=== PATIENT | female | born 1980 | race Caucasian/White ===

== ENCOUNTER 2016-12-11 16:47 | Emergency (ER) | payer MEDICAID ==
[~2016-12-11] VITALS: Ht 172.7 cm; Wt 82.0 kg
[~2016-12-11 16:47] MED LIST: WELL150T PO
[2016-12-11 16:50] VITALS: BP 129/93; PULSE 87; RESP 16; TEMP 98.1; O2SAT 98
--- NOTE | 2016-12-11 17:13 | PD ---
HPI Chief Complaint: Abdominal Pain Time Seen by Provider: 17:03 Travel History International Travel<30 days: No Contact w/Intl Traveler<30days: No Traveled to known affect area: No History of Present Illness HPI The patient was seen and examined in the presence of the nurse. This patient bent over and twist her torso to reach her leg to shave and strain or muscle right upper quadrant. She felt like it bulged out at the time it happened. Occasionally gets twinges of pain there. No nausea or vomiting or diarrhea or fever. No direct trauma to the region. Also complains of some pelvic cramping for the last 2 weeks. She has no vaginal discharge or bleeding abnormalities. Symptoms severity is moderate. No alleviating factors. PFSH Past Medical History ADHD: Yes Anxiety: Yes Depression: Yes Diminished Hearing: No Herniated Disk: Yes Immunizations Current: Yes ?: Not LMP: 2 WEEKS : 2 Para: 1 : 1 Social History Alcohol Use: No Tobacco Use: No Substance Use: No Allergies-Medications (Allergen,Severity, Reaction): Coded Allergies: No Known Allergies (Verified , 09/01/16) Reported Meds & Prescriptions Reported Meds & Active Scripts Active Reported Buspirone (Buspirone HCl) 7.5 Mg Tab 7.5 Mg PO BID Wellbutrin SR 12 HR (Bupropion HCl) 150 Mg Tab 150 Mg PO Q12HR Review of Systems General / Constitutional: No: Fever Eyes: No: Visual changes HENT: No: Headaches Cardiovascular: No: Chest Pain or Discomfort Respiratory: No: Shortness of Breath Gastrointestinal: Positive: Abdominal Pain Genitourinary: Positive: Pelvic Pain, No: Dysuria Musculoskeletal: No: Pain Skin: No Rash Neurologic: No: Weakness Psychiatric: No: Depression Endocrine: No: Polydipsia Hematologic/Lymphatic: No: Easy Bruising Physical Exam Narrative GENERAL: Well-nourished, well-developed patient in no apparent distress. SKIN: Warm and dry. HEAD: Atraumatic. Normocephalic. EYES: Pupils equal and round. No scleral icterus. No injection or drainage. ENT: No nasal bleeding or discharge. Mucous membranes pink and moist. NECK: Trachea midline. No JVD. CARDIOVASCULAR: Regular rate and rhythm. No murmur appreciated. RESPIRATORY: No accessory muscle use. Clear to auscultation. Breath sounds equal bilaterally. GASTROINTESTINAL: Abdomen soft, non-tender, nondistended. Hepatic and splenic margins not palpable. No right upper quadrant abnormalities are noted MUSCULOSKELETAL: No obvious deformities. No clubbing. No cyanosis. No edema. NEUROLOGICAL: Awake and alert. No obvious cranial nerve deficits. Motor grossly within normal limits. Normal speech. PSYCHIATRIC: Appropriate mood and affect; insight and judgment normal. Data Data Last Documented VS Vital Signs Date Time Temp Pulse Resp B/P Pulse Ox O2 Delivery O2 Flow Rate FiO2 12/11/16 16:50 98.1 87 16 129/93 98 Orders Urinalysis - C+S If Indicated (12/11/16 16:55) Ed Urine Pregnancytest Poc (12/11/16 17:10) Labs Laboratory Tests Test 12/11/16 17:05 Urine Collection Type CLEAN CATCH Urine Color YELLOW Urine Turbidity SLIGHTY CLOUDY Urine pH 7.5 Urine Specific [place] 1.020 Urine Protein NEG mg/dL Urine Glucose (UA) NEG mg/dL Urine Ketones NEG mg/dL Urine Occult Blood NEG Urine Nitrite NEG Urine Bilirubin NEG Urine Leukocyte Esterase NEG Urine Squamous Epithelial 0-5 /hpf Cells Urine Amorphous Sediment MOD Microscopic Urinalysis Comment CULT NOT INDICATED MDM Medical Decision Making Medical Screen Exam Complete: Yes Emergency Medical Condition: Yes Medical Record Reviewed: Yes Differential Diagnosis Intercostal muscle strain, abdominal muscle injury, ectopic Narrative Course I have reviewed the patient's electronic medical record. She is a frequent visitor to the ER for minor complaints Urinalysis is normal Urine is negative Abdomen is soft and benign and nontender. I don't feel she requires emergent imaging, no clinical suspicion of intra- abdominal emergent process. Wrote her some Tylenol with codeine to use as needed for pain She has no symptoms or clinical suspicion of PID Recommend primary care follow-up Diagnosis Primary Impression: Abdominal muscle strain Qualified Code: S39.011A - Abdominal muscle strain, initial encounter Additional Impression: Pelvic pain Additional Instructions: The patient was advised to follow up with their physician and return if they worsen. The patient was warned about potential sedation for the medications they will receive on prescription. Med/Other Pt SpecificInfo: Prescription(s) given Scripts Acetaminophen-Codeine (Tylenol-Codeine #3)300-30 mg Tab1 Tab PO Q6HR NEB PRN ( PAIN) #20 TAB Ref 0 Prov:Kwadwo Bolden MD 12/11/16 Disposition: 01 DISCHARGE HOME Condition: Stable Kwadwo Bolden MD Dec 11, 2016 17:13
[2016-12-11] MEDS ORDERED: BUPR150CR PO (17:14)
[2016-12-11] MEDS ORDERED: BUSP1TAB PO (17:14)
[2016-12-11 17:17] LABS: BLOOD, URINE NEG (NEG); GLUCOSE,URINE NEG (NEG); KETONE, URINE NEG (NEG); NITRITE,URINE NEG (NEG); PH, URINE 7.5 (5.0-8.5)
[2016-12-11 17:20] LABS: METHOD OF COLLECTION CLEAN CATCH; URINE COLOR YELLOW (YELLW/STRAW)
[2016-12-11 17:21] LABS: COMMENT (UR) CULT NOT INDICATED; CULTURE IF INDICATED CULT NOT INDICATED; SQUAMOUS EPITHELIAL CELL URINE 0-5 /hpf (0-5)
[2016-12-11] MEDS ORDERED: TYLETAB34 PO (17:28)
== END 2016-12-11 17:46 | disposition home or self-care (01) ==
LOC: PHED 16:47
DX: S39.011A Strain of muscle, fascia and tendon of abdomen, initial encounter (principal); R10.2 Pelvic and perineal pain; X50.1XXA Overexertion from prolonged static or awkward postures, initial encounter; Y93.E1 Activity, personal bathing and showering
CPT/HCPCS: 81001; 84703; 99283

== ENCOUNTER 2017-03-10 10:08 | Emergency (ER) | payer MEDICAID ==
[~2017-03-10] VITALS: Ht 172.7 cm; Wt 71.0 kg
[~2017-03-10 10:08] MED LIST changes: +BUPR150CR PO; +BUSP1TAB PO; +TYLETAB34 PO; -WELL150T PO
[2017-03-10 10:17] VITALS: BP 120/83; PULSE 71; RESP 16; TEMP 98.4; O2SAT 96
[2017-03-10] MEDS ORDERED: ONDANSETRON HCL 4 MG/2 ML VIAL IV PUSH ONE (10:45)
[2017-03-10] MEDS ORDERED: SODIUM CHLOR 0.9% 1000 ML INJ 1,000 ML IV ONE ×2 (10:45)
--- NOTE | 2017-03-10 10:51 | PD ---
HPI Chief Complaint: GI Complaint Time Seen by Provider: 10:34 Travel History International Travel<30 days: No Contact w/Intl Traveler<30days: No Traveled to known affect area: No History of Present Illness HPI This 36-year-old female says she been vomiting 3-4 times per day. She is having epigastric pain. She has a history of GERD in the past. She says she's had less energy than usual. She does say she's been under a lot of stress for several months. She's had a 24 pound weight loss. She does not think she is but not sure. Her last period was a couple of weeks ago. She checked a home test yesterday which was negative. she does not drink alcohol or do drugs. She says that at times she feels flushed and feels like she has fever but she has not measured it PFSH Past Medical History ADHD: Yes Anxiety: Yes Depression: Yes Diminished Hearing: No Herniated Disk: Yes Immunizations Current: Yes Tetanus Vaccination: > 5 Years Influenza Vaccination: Yes ?: Not LMP: 2 weeks ago : 2 Para: 1 : 1 Past Surgical History Surgical History: No Previous Surgery Social History Alcohol Use: No Tobacco Use: Yes Substance Use: No Allergies-Medications (Allergen,Severity, Reaction): Coded Allergies: No Known Allergies (Verified , 03/10/17) Reported Meds & Prescriptions Reported Meds & Active Scripts Active Tylenol-Codeine #3 (Acetaminophen-Codeine) 300-30 mg Tab 1 Tab PO Q6HR NEB PRN Reported Buspirone (Buspirone HCl) 7.5 Mg Tab 7.5 Mg PO BID Wellbutrin SR 12 HR (Bupropion HCl) 150 Mg Tab 150 Mg PO Q12HR Review of Systems General / Constitutional: Positive: Fever Eyes: No: Diploplia, Blurred Vision HENT: Positive: Lightheadedness, No: Headaches Cardiovascular: No: Chest Pain or Discomfort, Palpitations Respiratory: No: Cough, Shortness of Breath Gastrointestinal: Positive: Vomiting, Abdominal Pain Genitourinary: No: Urgency, Frequency Musculoskeletal: No: Myalgias Neurologic: No: Weakness Psychiatric: No: Anxiety Endocrine: No: Heat Intolerance Physical Exam Narrative GENERAL: Well-developed female SKIN: Focused skin assessment warm/dry. HEAD: Atraumatic. Normocephalic. EYES: Pupils equal and round. No scleral icterus. No injection or drainage. ENT: No nasal bleeding or discharge. Mucous membranes pink and moist. NECK: Trachea midline. No JVD. CARDIOVASCULAR: Regular rate and rhythm. No murmur appreciated. RESPIRATORY: No accessory muscle use. Clear to auscultation. Breath sounds equal bilaterally. GASTROINTESTINAL: Abdomen soft, mild epigastric tenderness, nondistended. Hepatic and splenic margins not palpable. MUSCULOSKELETAL: No obvious deformities. No clubbing. No cyanosis. No edema. NEUROLOGICAL: Awake and alert. No obvious cranial nerve deficits. Motor grossly within normal limits. Normal speech. PSYCHIATRIC: Appropriate mood and affect; insight and judgment normal. Data Data Last Documented VS Vital Signs Date Time Temp Pulse Resp B/P Pulse Ox O2 Delivery O2 Flow Rate FiO2 03/10/17 11:58 65 16 128/89 100 Room Air 03/10/17 10:17 98.4 Orders Complete Blood Count With Diff (03/10/17 10:43) Comprehensive Metabolic Panel (03/10/17 10:43) Lipase (03/10/17 10:43) Urinalysis - C+S If Indicated (03/10/17 10:43) Ct Abd/Pel W Iv Contrast(Rout) (03/10/17 10:43) Ed Urine Pregnancytest Poc (03/10/17 10:43) Sodium Chlor 0.9% 1000 Ml Inj (Ns 1000 M (03/10/17 10:45) Sodium Chlor 0.9% 1000 Ml Inj (Ns 1000 M (03/10/17 10:45) Ondansetron Inj (Zofran Inj) (03/10/17 10:45) Pantoprazole Inj (Protonix Inj) (03/10/17 11:00) Iohexol 350 Inj (Omnipaque 350 Inj) (03/10/17 12:43) Labs Laboratory Tests Test 03/10/17 03/10/17 11:12 11:20 White Blood Count 6.1 TH/MM3 Red Blood Count 4.15 MIL/MM3 Hemoglobin 13.4 GM/DL Hematocrit 38.7 % Mean Corpuscular Volume 93.3 FL Mean Corpuscular Hemoglobin 32.2 PG Mean Corpuscular Hemoglobin 34.5 % Concent Red Cell Distribution Width 11.7 % Platelet Count 199 TH/MM3 Mean Platelet Volume 8.1 FL Neutrophils (%) (Auto) 60.8 % Lymphocytes (%) (Auto) 27.6 % Monocytes (%) (Auto) 7.2 % Eosinophils (%) (Auto) 1.0 % Basophils (%) (Auto) 3.4 % Neutrophils # (Auto) 3.7 TH/MM3 Lymphocytes # (Auto) 1.7 TH/MM3 Monocytes # (Auto) 0.4 TH/MM3 Eosinophils # (Auto) 0.1 TH/MM3 Basophils # (Auto) 0.2 TH/MM3 CBC Comment DIFF FINAL Differential Comment Sodium Level 140 MEQ/L Potassium Level 3.9 MEQ/L Chloride Level 104 MEQ/L Carbon Dioxide Level 25.7 MEQ/L Anion Gap 10 MEQ/L Blood Urea Nitrogen 6 MG/DL Creatinine 0.67 MG/DL Estimat Glomerular Filtration 100 ML/MIN Rate Random Glucose 87 MG/DL Calcium Level 8.9 MG/DL Total Bilirubin 0.9 MG/DL Aspartate Amino Transf 39 U/L (AST/SGOT) Alanine Aminotransferase 62 U/L (ALT/SGPT) Alkaline Phosphatase 55 U/L Total Protein 7.8 GM/DL Albumin 3.7 GM/DL Lipase 135 U/L Urine Collection Type CLEAN CATCH Urine Color YELLOW Urine Turbidity CLEAR Urine pH 7.0 Urine Specific [place] 1.018 Urine Protein TRACE mg/dL Urine Glucose (UA) NEG mg/dL Urine Ketones 80 OR GREATER mg/dL Urine Occult Blood NEG Urine Nitrite NEG Urine Bilirubin NEG Urine Leukocyte Esterase NEG Urine WBC 0-2 /hpf Urine Squamous Epithelial > 8 /hpf Cells Microscopic Urinalysis Comment CULT NOT INDICATED Urine Collection Time 11:20 MDM Medical Decision Making Medical Screen Exam Complete: Yes Emergency Medical Condition: Yes Medical Record Reviewed: Yes Differential Diagnosis Differential includes obstruction, ulcer disease, GERD Narrative Course CT is negative for obstruction. Lab work shows a normal white count and hemoglobin. I suspect her symptoms are secondary to gastritis possible ulcer. I will prescribe Prilosec and Zofran with recommendations for GI follow-up Diagnosis Primary Impression: Gastritis Qualified Code: K29.70 - Gastritis without bleeding, unspecified chronicity, unspecified gastritis type Scripts Ondansetron Odt (Zofran Odt)4 Mg Tab4 Mg SL Q6HR PRN (Nausea/Vomiting) #30 TAB Ref 0 Prov:Lane Quevedo MD 03/10/17 Omeprazole (Prilosec)20 Mg Cap20 Mg PO DAILY #30 CAP Ref 0 Prov:Lane Quevedo MD 03/10/17 Disposition: 01 DISCHARGE HOME Condition: Stable Lane Quevedo MD Mar 10, 2017 10:51
[2017-03-10] MEDS ORDERED: PANTOPRAZOLE SODIUM 40 MG VIAL IV PUSH ONE (11:00)
[2017-03-10 11:16] LABS: AUTOMATED NEUTROPHIL # 3.7 TH/MM3 (1.8-7.7); BASOPHIL # 0.2 TH/MM3 (0-0.2); BASOPHIL % 3.4 % (0.0-2.0); EOSINOPHIL # 0.1 TH/MM3 (0-0.4); HEMATOCRIT 38.7 % (35.0-46.0); HEMO FLAGS DIFF FINAL; LYMPH % 27.6 % (9.0-44.0); LYMPHOCYTE # 1.7 TH/MM3 (1.0-4.8); MEAN CELL VOLUME 93.3 FL (80.0-100.0); MEAN CORPUSCULAR HEMOGLOBIN 32.2 PG (27.0-34.0); MEAN CORPUSCULAR HGB CONC 34.5 % (32.0-36.0); MONO % 7.2 % (0.0-8.0); NEUT % 60.8 % (16.0-70.0); PLATELET COUNT 199 TH/MM3 (150-450); RED BLOOD COUNT 4.15 MIL/MM3 (4.00-5.30); RED CELL DISTRIBUTION WIDTH 11.7 % (11.6-17.2); WHITE BLOOD COUNT 6.1 TH/MM3 (4.0-11.0)
[2017-03-10 11:24] LABS: CHLORIDE 104 MEQ/L (98-107); POTASSIUM 3.9 MEQ/L (3.5-5.1); SODIUM (NA) 140 MEQ/L (136-145)
[2017-03-10 11:28] LABS: ANION GAP 10 MEQ/L (5-15); BICARBONATE 25.7 MEQ/L (21.0-32.0); BLOOD UREA NITROGEN 6 MG/DL (7-18)
[2017-03-10 11:31] LABS: ALT (GPT) 62 U/L (10-53); AST (GOT) 39 U/L (15-37); GLOMERULAR FILTRATION RATE 100 ML/MIN (>89)
[2017-03-10 11:32] LABS: TOTAL BILIRUBIN ADULT 0.9 MG/DL (0.2-1.0)
[2017-03-10 11:33] LABS: ALKALINE PHOSPHATASE 55 U/L (45-117)
[2017-03-10 11:37] LABS: BLOOD, URINE NEG (NEG); GLUCOSE,URINE NEG (NEG); NITRITE,URINE NEG (NEG)
[2017-03-10 11:38] LABS: KETONE, URINE 80 OR GREATER mg/dL (NEG)
[2017-03-10 11:41] LABS: METHOD OF COLLECTION CLEAN CATCH; URINE COLOR YELLOW (YELLW/STRAW)
[2017-03-10 11:42] LABS: COMMENT (UR) CULT NOT INDICATED; CULTURE IF INDICATED CULT NOT INDICATED; SQUAMOUS EPITHELIAL CELL URINE > 8 /hpf (0-5); WBC, URINE 0-2 /hpf (0-5)
[2017-03-10 11:58] VITALS: BP 128/89; PULSE 65; RESP 16; O2SAT 100
[2017-03-10] MEDS ORDERED: IOHEXOL 350 MG/ML 10 ML VIAL (for RAD DIAG) IV ONE (12:43)
--- NOTE | 2017-03-10 13:07 | RADHPO ---
EXAM DATE/TIME: 03/10/2017 12:32 [facility] COMPARISON: No previous studies available for comparison. INDICATIONS : Epigastric pain x 2 weeks. Nausea and vomiting. IV CONTRAST: 80 cc Omnipaque 350 (iohexol) IV ORAL CONTRAST: No oral contrast ingested. RADIATION DOSE: 8.73 CTDIvol (mGy) MEDICAL HISTORY : Gastroesophageal reflux disease. SURGICAL HISTORY : None. ENCOUNTER: Initial ACUITY: 2 weeks PAIN SCALE: 8/10 LOCATION: Epigastric. TECHNIQUE: Volumetric scanning of the abdomen and pelvis was performed. Using automated exposure control and ad justment of the mA and/or kV according to patient size, radiation dose was kept as low as reasonably achievable to obtain optimal diagnostic quality images. FINDINGS: LOWER LUNGS: The visualized lower lungs are clear. LIVER: Homogeneous density without lesion. There is no dilation of the biliary tree. No calcified gallston es. SPLEEN: Normal size without lesion. PANCREAS: Within normal limits. KIDNEYS: Normal in size and shape. There is no mass, stone or hydronephrosis. ADRENAL GLANDS: Within normal limits. VASCULAR: There is no aortic aneurysm. BOWEL/MESENTERY: The stomach, small bowel, and colon demonstrate no acute abnormality. There is no free intraperitone al air or fluid. Appendix is normal. ABDOMINAL WALL: Within normal limits. RETROPERITONEUM: There is no lymphadenopathy. BLADDER: No wall thickening or mass. REPRODUCTIVE: Within normal limits. There is a 2 cm cyst/follicle in the left ovary. INGUINAL: There is no lymphadenopathy or hernia. MUSCULOSKELETAL: Within normal limits for patient age. CONCLUSION: No acute finding is identified within the abdomen or pelvis. Quinn Cordova MD on March 10, 2017 at 13:02 Board Certified Radiologist. This report was verified electronically.
[2017-03-10 13:35] VITALS: BP 119/77; PULSE 66; RESP 16; O2SAT 100
[2017-03-10] MEDS ORDERED: ZOFR4TAB3 SL (13:37)
[2017-03-10] MEDS ORDERED: PRIL20CA9 PO (13:37)
== END 2017-03-10 13:59 | disposition home or self-care (01) ==
LOC: PHED 10:08
DX: K29.70 Gastritis, unspecified, without bleeding (principal); R10.13 Epigastric pain; Z72.0 Tobacco use
CPT/HCPCS: 74177; 80053; 81001; 83690; 84703; 85025; 96361; 96374; 96375; 99284; C9113; J2405; J7030; Q9967

== ENCOUNTER 2017-03-31 08:43 | Observation (INO) | payer MEDICAID ==
[~2017-03-31] VITALS: Ht 172.7 cm; Wt 71.0 kg
[~2017-03-31 08:43] MED LIST changes: +PRIL20CA9 PO; +ZOFR4TAB3 SL
[2017-03-31 08:46] VITALS: BP 120/90; PULSE 80; RESP 16; TEMP 98.3
--- NOTE | 2017-03-31 08:50 | PD ---
HPI Chief Complaint: Flank/Kidney Pain Time Seen by Provider: 08:50 Travel History International Travel<30 days: No Contact w/Intl Traveler<30days: No Traveled to known affect area: No History of Present Illness HPI 36-year-old female came to the emergency room with history of sudden onset left flank pain since 2 AM that woke her up from sleep. Patient says that the pain is sharp and excruciating and radiates down to her left lower quadrant. She has never experienced this kind of pain in the past. She gave a urine sample prior to me coming in to see her and the urine appeared blood tinged. History of fever or chills. She has been nauseous and vomited few times. Patient says that she was diagnosed with acute gastritis 2 weeks ago when she was vomiting. She was sent home on Zofran and an antacid. Patient took the Zofran that she had from her prescription for nausea that has helped some. She looks uncomfortable. Vital signs are otherwise stable. [facility] Past Medical History Narrative Medical List of her past medical, surgical, social and family history was reviewed from nursing note. ADHD: Yes Anxiety: Yes Depression: Yes Diminished Hearing: No Herniated Disk: Yes Immunizations Current: Yes ?: Not LMP: 2 days ago : 2 Para: 1 : 1 Social History Alcohol Use: No Tobacco Use: Yes Substance Use: No Allergies-Medications (Allergen,Severity, Reaction): Coded Allergies: No Known Allergies (Verified , 03/31/17) Comments No known drug allergies. Reported Meds & Prescriptions Reported Meds & Active Scripts Active Zofran Odt (Ondansetron Odt) 4 Mg Tab 4 Mg SL Q6HR PRN Reported Buspirone (Buspirone HCl) 7.5 Mg Tab 10 Mg PO BID Wellbutrin SR 12 HR (Bupropion HCl) 150 Mg Tab 150 Mg PO DAILY Narrative Medication List of her home medications reviewed from the nursing note. Review of Systems Except as stated in HPI: all other systems reviewed are Neg Physical Exam Narrative GENERAL: Awake, alert, moderate to significant distress SKIN: Focused skin assessment warm/dry. HEAD: Atraumatic. Normocephalic. EYES: Pupils equal and round. No scleral icterus. No injection or drainage. ENT: No nasal bleeding or discharge. Mucous membranes pink and moist. NECK: Trachea midline. No JVD. CARDIOVASCULAR: Regular rate and rhythm. No murmur appreciated. RESPIRATORY: No accessory muscle use. Clear to auscultation. Breath sounds equal bilaterally. GASTROINTESTINAL: Abdomen soft, non-tender, nondistended. Hepatic and splenic margins not palpable. MUSCULOSKELETAL: No obvious deformities. No clubbing. No cyanosis. No edema. NEUROLOGICAL: Awake and alert. No obvious cranial nerve deficits. Motor grossly within normal limits. Normal speech. PSYCHIATRIC: Appropriate mood and affect; insight and judgment normal. Data Data Last Documented VS Vital Signs Date Time Temp Pulse Resp B/P Pulse Ox O2 Delivery O2 Flow Rate FiO2 03/31/17 11:03 72 18 119/79 98 Room Air 03/31/17 08:46 98.3 Orders Complete Blood Count With Diff (03/31/17 08:55) Basic Metabolic Panel (Bmp) (03/31/17 08:55) Urinalysis - C+S If Indicated (03/31/17 08:55) Ed Urine Pregnancytest Poc (03/31/17 08:55) Ct Abd/Pel W/O Iv Contrast (03/31/17 08:55) Ecg Monitoring (03/31/17 08:55) Iv Access Insert/Monitor (03/31/17 08:55) Morphine Inj (Morphine Inj) (03/31/17 09:00) Ondansetron Inj (Zofran Inj) (03/31/17 09:00) Sodium Chloride 0.9% Flush (Ns Flush) (03/31/17 09:00) Sodium Chlor 0.9% 1000 Ml Inj (Ns 1000 M (03/31/17 08:55) Morphine Inj (Morphine Inj) (03/31/17 10:15) Ciprofloxacin 400 Mg Premix (Cipro 400 M (03/31/17 10:30) Metronidazole 500 Mg Inj (Flagyl 500 Mg (03/31/17 10:30) Blood Culture (03/31/17 10:16) Bupropion Sr (Wellbutrin Sr) (04/01/17 09:00) Admit Order (Ed Use Only) (03/31/17 11:32) Ciprofloxacin 400 Mg Premix (Cipro 400 M (03/31/17 23:00) Metronidazole 500 Mg Inj (Flagyl 500 Mg (03/31/17 18:00) Buspirone (Buspar) (03/31/17 21:00) Labs Laboratory Tests Test 03/31/17 03/31/17 09:10 09:20 Urine Collection Type CLEAN CATCH Urine Color YELLOW Urine Turbidity CLEAR Urine pH 6.0 Urine Specific [place] 1.022 Urine Protein NEG mg/dL Urine Glucose (UA) NEG mg/dL Urine Ketones TRACE mg/dL Urine Occult Blood TRACE Urine Nitrite NEG Urine Bilirubin NEG Urine Leukocyte Esterase TRACE Urine RBC 0-3 /hpf Urine WBC 0-2 /hpf Urine Squamous Epithelial 0-5 /hpf Cells Urine Bacteria OCC /hpf Urine Mucus OCC /lpf Microscopic Urinalysis Comment CULT NOT INDICATED Urine Collection Time 09:10 White Blood Count 8.1 TH/MM3 Red Blood Count 4.33 MIL/MM3 Hemoglobin 13.6 GM/DL Hematocrit 40.4 % Mean Corpuscular Volume 93.4 FL Mean Corpuscular Hemoglobin 31.5 PG Mean Corpuscular Hemoglobin 33.7 % Concent Red Cell Distribution Width 11.8 % Platelet Count 252 TH/MM3 Mean Platelet Volume 8.0 FL Neutrophils (%) (Auto) 73.8 % Lymphocytes (%) (Auto) 17.1 % Monocytes (%) (Auto) 7.4 % Eosinophils (%) (Auto) 1.3 % Basophils (%) (Auto) 0.4 % Neutrophils # (Auto) 6.0 TH/MM3 Lymphocytes # (Auto) 1.4 TH/MM3 Monocytes # (Auto) 0.6 TH/MM3 Eosinophils # (Auto) 0.1 TH/MM3 Basophils # (Auto) 0.0 TH/MM3 CBC Comment DIFF FINAL Differential Comment Sodium Level 139 MEQ/L Potassium Level 4.0 MEQ/L Chloride Level 103 MEQ/L Carbon Dioxide Level 30.2 MEQ/L Anion Gap 6 MEQ/L Blood Urea Nitrogen 6 MG/DL Creatinine 0.71 MG/DL Estimat Glomerular Filtration 94 ML/MIN Rate Random Glucose 98 MG/DL Calcium Level 9.4 MG/DL [facility] Medical Decision Making Medical Screen Exam Complete: Yes Emergency Medical Condition: Yes Medical Record Reviewed: Yes Differential Diagnosis Ureteral colic, pyelonephritis, muscular skeletal pain Narrative Course 9:21 AM pain medication and IV fluid has been ordered. Awaiting for the blood test and CAT scan results. The nurse was unable to get a peripheral IV upon multiple trial. I put an EJ line. Please refer to my procedure note. 11:09 AM patient continued to complain of pain after the first dose of morphine. A second dose was given and at that point CAT scan report was back as well. It was read as colitis and possible diverticulitis. I started her on IV Flagyl and ciprofloxacin. I just reassessed her and she said the pain is 8 out of 10. Given her intractable pain and underlying pathology is like to admit her at this point. Awaiting for the hospitalist to call back. I discussed this with the patient and she is agreeable with the plan. Procedures Procedure Narrative EJ line: Patient was laid supine and the bed tilted a Trendelenburg position. The right EJ site was prepped with ChloraPrep times one. Patient was asked to do a Valsalva maneuver to fill the vein out and make a prominent. A 20-gauge injury catheter was inserted. Patient tolerated procedure well. EKG Prior to Arrival: No Diagnosis Primary Impression: Acute diverticulitis Additional Impression: Intractable abdominal pain Admitting Information Admitting Physician Requests: it Mehreen De León MD March 31, 2017 08:50
[2017-03-31] MEDS ORDERED: SODIUM CHLOR 0.9% 1000 ML INJ 1,000 ML IV ONE (08:55)
[2017-03-31] MEDS ORDERED: MORPHINE SULFATE 4 MG/ML INJ IV ONE (09:00)
[2017-03-31] MEDS ORDERED: ONDANSETRON HCL 4 MG/2 ML VIAL IVP ONE (09:00)
[2017-03-31 09:20] LABS: BLOOD, URINE TRACE (NEG); GLUCOSE,URINE NEG (NEG); KETONE, URINE TRACE mg/dL (NEG); NITRITE,URINE NEG (NEG)
[2017-03-31 09:27] LABS: METHOD OF COLLECTION CLEAN CATCH; MUCUS URINE OCC /lpf (OCC); URINE COLOR YELLOW (YELLW/STRAW)
[2017-03-31 09:28] LABS: BACTERIA, URINE OCC /hpf; COMMENT (UR) CULT NOT INDICATED; CULTURE IF INDICATED CULT NOT INDICATED; RBC, URINE 0-3 /hpf (0-3); SQUAMOUS EPITHELIAL CELL URINE 0-5 /hpf (0-5); WBC, URINE 0-2 /hpf (0-5)
[2017-03-31] MEDS: SODIUM CHLORIDE 0.9% FLUSH 10 ML FLUSH IVF PRN ×2 (09:31→10:27)
[2017-03-31 09:32] LABS: BASOPHIL % 0.4 % (0.0-2.0); EOSINOPHIL # 0.1 TH/MM3 (0-0.4); EOSINOPHIL % 1.3 % (0.0-4.0); HEMATOCRIT 40.4 % (35.0-46.0); HEMO FLAGS DIFF FINAL; LYMPH % 17.1 % (9.0-44.0); LYMPHOCYTE # 1.4 TH/MM3 (1.0-4.8); MEAN CELL VOLUME 93.4 FL (80.0-100.0); MEAN CORPUSCULAR HEMOGLOBIN 31.5 PG (27.0-34.0); MEAN CORPUSCULAR HGB CONC 33.7 % (32.0-36.0); MONO % 7.4 % (0.0-8.0); NEUT % 73.8 % (16.0-70.0); PLATELET COUNT 252 TH/MM3 (150-450); RED BLOOD COUNT 4.33 MIL/MM3 (4.00-5.30); RED CELL DISTRIBUTION WIDTH 11.8 % (11.6-17.2); WHITE BLOOD COUNT 8.1 TH/MM3 (4.0-11.0)
[2017-03-31 09:48] LABS: BICARBONATE 30.2 MEQ/L (21.0-32.0)
--- NOTE | 2017-03-31 10:02 | RADHPO ---
EXAM DATE/TIME: 03/31/2017 09:32 [facility] COMPARISON: No previous studies available for comparison. INDICATIONS : Left flank pain. ORAL CONTRAST: No oral contrast ingested. RADIATION DOSE: 10.37 CTDIvol (mGy) MEDICAL HISTORY : None SURGICAL HISTORY : None. ENCOUNTER: Initial ACUITY: 1 day PAIN SCALE: 9/10 LOCATION: Left flank TECHNIQUE: Volumetric scanning of the abdomen and pelvis was performed. Using automated exposure control and ad justment of the mA and/or kV according to patient size, radiation dose was kept as low as reasonably achievable to obtain optimal diagnostic quality images. FINDINGS: LOWER LUNGS: The visualized lower lungs are clear. LIVER: Homogeneous density without lesion. There is no dilation of the biliary tree. No calcified gallston es. SPLEEN: Normal size without lesion. PANCREAS: Within normal limits. KIDNEYS: Normal in size and shape. Isolated, nonobstructing 1.5-2 mm calculus in the midpole collecting system of the right kidney. Kidneys are otherwise radiographically normal. ADRENAL GLANDS: Within normal limits. VASCULAR: There is no aortic aneurysm. BOWEL/MESENTERY: Focal area of bowel wall thickening in the proximal to mid descending. There is also regional pericol onic stranding all characteristic of a focal colitis, likely related to regional diverticula. ABDOMINAL WALL: Within normal limits. RETROPERITONEUM: There is no lymphadenopathy. BLADDER: No wall thickening or mass. REPRODUCTIVE: Within normal limits. INGUINAL: There is no lymphadenopathy or hernia. MUSCULOSKELETAL: Within normal limits for patient age. CONCLUSION: 1. Patient's symptoms appear to be related to a focal colitis involving the proximal and mid descendi ng portions of the colon with colonic thickening and pericolonic stranding. No abscess. Etiology is l ikely uncomplicated diverticulitis. 2. Nonobstructing 1.5-2 mm isolated calculus in the midpole collecting system of the right kidney. No left renal or ureteral stones. Javier Mantilla MD on March 31, 2017 at 9:55 Board Certified Radiologist. This report was verified electronically.
[2017-03-31] MEDS ORDERED: MORPHINE SULFATE 4 MG/ML INJ IV PUSH ONE (10:15)
[2017-03-31] MEDS ORDERED: metroNIDAZOLE 500 MG INJ 100 ML IV ONE (10:30)
[2017-03-31] MEDS ORDERED: CIPROFLOXACIN 400 MG PREMIX 200 ML IV ONE (10:30)
[2017-03-31 10:35] VITALS: BP 112/69; PULSE 67; RESP 16; O2SAT 97
[2017-03-31 11:03] VITALS: BP 119/79; PULSE 72; RESP 18; O2SAT 98
[2017-03-31] MEDS ORDERED: HYDROmorphone HCL PF 1 MG/ML VIAL IV PRN (11:45)
[2017-03-31] MEDS ORDERED: ACETAMINOPHEN/HYDROcodone 325 MG/5 MG TAB PO PRN (11:45)
[2017-03-31] MEDS ORDERED: ACETAMINOPHEN 325 MG TAB PO PRN (11:45)
[2017-03-31] MEDS ORDERED: MAGNESIUM HYDROXIDE SUSP 30 ML CUP PO PRN (11:45)
[2017-03-31] MEDS ORDERED: SODIUM CHLORIDE 0.9% FLUSH 10 ML FLUSH IV FLUSH PRN (11:45)
[2017-03-31] MEDS ORDERED: NALOXONE HCL 0.4 MG/ML AMP IV PRN (11:45)
[2017-03-31] MEDS: DOCUSATE SODIUM 100 MG CAP PO SCH ×2 (12:08→21:03)
[2017-03-31] MEDS: ENOXAPARIN SODIUM 40 MG/0.4 ML SYRINGE SQ SCH (12:08)
[2017-03-31 12:10] VITALS: BP 111/76; PULSE 76; RESP 16; RESP 8; O2SAT 98
[2017-03-31] MEDS: ACETAMINOPHEN/HYDROcodone 325 MG/7.5 MG TAB PO PRN ×3 (12:22→21:03)
--- NOTE | 2017-03-31 13:55 | HHI.HP ---
HPI Service [facility] Primary Care Physician No Primary Care Physician Admission Diagnosis acute diverticulitis, intractable pain Diagnoses: Chief Complaint: abdominal pain Travel History International Travel<30 Days: No Contact w/Intl Traveler <30 Da: No Traveled to Known Affected Are: No History of Present Illness 36-year-old female came to the emergency room with history of sudden onset left flank pain since 2 AM that woke her up from sleep. Patient says that the pain is sharp and excruciating and radiates down to her left lower quadrant. She has never experienced this kind of pain in the past. She gave a urine sample prior to the knee coming in to see her and the urine appeared blood tinged. History of fever or chills. She has been nauseous and vomited few times. Patient says that she was diagnosed with acute gastritis 2 weeks ago when she was vomiting. She was sent home on Zofran and an antacid. Patient took the Zofran that she had from her prescription for nausea that has helped some. She looks uncomfortable. Vital signs are otherwise stable. Review of Systems Except as stated in HPI: all other systems reviewed are Neg Past Family Social History Past Medical History GERD, anxiety /depression Past Surgical History Right radial /ulnar fracture Laparoscopy/endoscopy 20 ya Reported Medications Reported Meds & Active Scripts Active Zofran Odt (Ondansetron Odt) 4 Mg Tab 4 Mg SL Q6HR PRN Reported Buspirone (Buspirone HCl) 7.5 Mg Tab 10 Mg PO BID Wellbutrin SR 12 HR (Bupropion HCl) 150 Mg Tab 150 Mg PO DAILY Allergies: Coded Allergies: No Known Allergies (Verified , 03/31/17) Family History Mother HTN, glaucoma Father DM, heart problems Social History Denies EtOH use, or illicit drug use Occasional tobacco use 1 pack x 2 weeks Per former drug user, relapsed recently after loss in family (daughter ). However the patient denies illicit drug use. Physical Exam Vital Signs Vital Signs Date Time Temp Pulse Resp B/P Pulse Ox O2 Delivery O2 Flow Rate FiO2 03/31/17 12:10 76 16 111/76 98 Room Air 03/31/17 11:03 72 18 119/79 98 Room Air 03/31/17 10:35 67 16 112/69 97 Room Air 03/31/17 10:20 16 03/31/17 09:25 77 16 03/31/17 08:46 98.3 80 16 120/90 Physical Exam GENERAL: This is a well-nourished, well-developed patient, in no apparent distress. SKIN: No rashes, ecchymoses or lesions. Cool and dry. HEAD: Atraumatic. Normocephalic. No temporal or scalp tenderness. EYES: Pupils equal round and reactive. Extraocular motions intact. No scleral icterus. No injection or drainage. ENT: Nose without bleeding, purulent drainage or septal hematoma. Throat without erythema, tonsillar hypertrophy or exudate. Uvula midline. Airway patent. NECK: Trachea midline. No JVD or lymphadenopathy. Supple, nontender, no meningeal signs. CARDIOVASCULAR: Regular rate and rhythm without murmurs, gallops, or rubs. RESPIRATORY: Clear to auscultation. Breath sounds equal bilaterally. No wheezes , rales, or rhonchi. GASTROINTESTINAL: Abdomen soft, diffuse tenderness, nondistended. No hepato- splenomegaly, or palpable masses. No guarding. MUSCULOSKELETAL: Extremities without clubbing, cyanosis, or edema. No joint tenderness, effusion, or edema noted. No calf tenderness. Negative Homans sign bilaterally. NEUROLOGICAL: Awake and alert. Cranial nerves II through XII intact. Motor and sensory grossly within normal limits. Five out of 5 muscle strength in all muscle groups. Normal speech. Laboratory Laboratory Tests Test 03/31/17 03/31/17 09:10 09:20 Urine Collection Type CLEAN CATCH Urine Color YELLOW Urine Turbidity CLEAR Urine pH 6.0 Urine Specific [place] 1.022 Urine Protein NEG Urine Glucose (UA) NEG Urine Ketones TRACE Urine Occult Blood TRACE Urine Nitrite NEG Urine Bilirubin NEG Urine Leukocyte Esterase TRACE Urine RBC 0-3 Urine WBC 0-2 Urine Squamous Epithelial 0-5 Cells Urine Bacteria OCC Urine Mucus OCC Microscopic Urinalysis Comment CULT NOT INDICATED Urine Collection Time 09:10 White Blood Count 8.1 Red Blood Count 4.33 Hemoglobin 13.6 Hematocrit 40.4 Mean Corpuscular Volume 93.4 Mean Corpuscular Hemoglobin 31.5 Mean Corpuscular Hemoglobin 33.7 Concent Red Cell Distribution Width 11.8 Platelet Count 252 Mean Platelet Volume 8.0 Neutrophils (%) (Auto) 73.8 Lymphocytes (%) (Auto) 17.1 Monocytes (%) (Auto) 7.4 Eosinophils (%) (Auto) 1.3 Basophils (%) (Auto) 0.4 Neutrophils # (Auto) 6.0 Lymphocytes # (Auto) 1.4 Monocytes # (Auto) 0.6 Eosinophils # (Auto) 0.1 Basophils # (Auto) 0.0 CBC Comment DIFF FINAL Differential Comment Sodium Level 139 Potassium Level 4.0 Chloride Level 103 Carbon Dioxide Level 30.2 Anion Gap 6 Blood Urea Nitrogen 6 Creatinine 0.71 Estimat Glomerular Filtration 94 Rate Random Glucose 98 Calcium Level 9.4 Date/Time Procedure Status Source Growth 03/31/17 10:25 Aerobic Blood Culture Received Blood Peripheral Pending 03/31/17 10:25 Anaerobic Blood Culture Received Blood Peripheral Pending Result Diagram: 03/31/17 0920 03/31/17 0920 Imaging Last Impressions Abdomen/Pelvis CT 03/31/17 0855 Signed Impressions: Service Date/Time: March 09:32 - CONCLUSION: 1. Patient's symptoms appear to be related to a focal colitis involving the proximal and mid descending portions of the colon with colonic thickening and pericolonic stranding. No abscess. Etiology is likely uncomplicated diverticulitis. 2. Nonobstructing 1.5-2 mm isolated calculus in the midpole collecting system of the right kidney. No left renal or ureteral stones. Javier Mantilla MD Assessment and Plan Assessment and Plan Intractable abdominal pain Colitis involving proximal and mid descending colon. Uncomplicated diverticulitis. Nonobstructive 1.5-2 mm right kidney stone Depression/anxiety H/o substance use (per , but patient denies, also says her parents doesn't know) Start IV abx ciprofloxacin and flagyl IVF Monitor VS Pain per pain scale Consult GI DVT ppx scd/teds/lovenox Discussed Condition With patient, nurse, ED physician, Mary Ann Nix MD March 31, 2017 13:55
[2017-03-31] MEDS: SODIUM CHLOR 0.9% 1000 ML INJ 1,000 ML IV SCH ×3 (14:43→21:03)
[2017-03-31] MEDS: HYDROmorphone HCL PF 1 MG/ML VIAL IV PRN (14:44)
[2017-03-31 17:01] VITALS: BP 128/89; PULSE 79; RESP 18; TEMP 97.9; O2SAT 95
[2017-03-31] MEDS: metroNIDAZOLE 500 MG INJ 100 ML IV SCH (17:26)
[2017-03-31] MEDS ORDERED: metroNIDAZOLE 500 MG INJ 100 ML IV SCH (18:00)
[2017-03-31 20:00] VITALS: BP 109/80; PULSE 76; RESP 18; TEMP 98.2; O2SAT 96
--- NOTE | 2017-03-31 20:48 | PD.CONS ---
HPI History of Present Illness This is a 36 year old female who presents to the ER with complaints of sudden onset of left sided abdominal pain and mostly left lower quadrant the patient denies eating nuts or seeds prior to this on admission through the ER she had a CT of the abdomen suggestive of colitis currently patient comfortable in bed still having a lot of pain she didn't have any obvious fever but felt little chills she denies any diarrhea or constipation denies any melena or hematochezia PFSH Past Medical History GERD, anxiety /depression Past Surgical History Right radial /ulnar fracture Laparoscopy/endoscopy 20 ya Coded Allergies: No Known Allergies (Verified , 03/31/17) Medications Zofran Odt (Ondansetron Odt) 4 Mg Tab 4 Mg SL Q6HR PRN Buspirone (Buspirone HCl) 7.5 Mg Tab 10 Mg PO BID Wellbutrin SR 12 HR (Bupropion HCl) 150 Mg Tab 150 Mg PO DAILY Family History Mother HTN, glaucoma Father DM, heart problems Social History Denies EtOH use, or illicit drug use Occasional tobacco use 1 pack x 2 weeks Per former drug user, relapsed recently after loss in family (daughter ). However the patient denies illicit drug use. Review of Systems ROS Review of systems Patient denies any headache dizziness blurry vision, denies any chest pain shortness of breath cough fever chills, Denies any palpitations or fatigue denies any polyuria dysuria hematuria, denies any numbness tingling or weakness, denies any skin rash pruritus or jaundice, denies any easy bruising or bleeding tendency, denies any recent change in mood GI Exam Vitals I&O Vital Signs Date Time Temp Pulse Resp B/P Pulse Ox O2 Delivery O2 Flow Rate FiO2 03/31/17 17:30 18 03/31/17 17:01 97.9 79 18 128/89 95 03/31/17 15:22 18 03/31/17 12:10 76 16 111/76 98 Room Air 03/31/17 11:03 72 18 119/79 98 Room Air 03/31/17 10:35 67 16 112/69 97 Room Air 03/31/17 10:20 16 03/31/17 09:25 77 16 03/31/17 08:46 98.3 80 16 120/90 I/O 5/17/17 5/1703/30/17 03/31/17 03/31/17 03/31/17 07:00 15:00 23:00 07:00 15:00 23:00 Intake Total 1300 ml Balance 1300 ml Intake IV Total 1300 ml # Voids 2 Imaging Last 48 hours Impressions Abdomen/Pelvis CT 03/31/17 0855 Signed Impressions: Service Date/Time: March 09:32 - CONCLUSION: 1. Patient's symptoms appear to be related to a focal colitis involving the proximal and mid descending portions of the colon with colonic thickening and pericolonic stranding. No abscess. Etiology is likely uncomplicated diverticulitis. 2. Nonobstructing 1.5-2 mm isolated calculus in the midpole collecting system of the right kidney. No left renal or ureteral stones. Javier Mantilla MD Laboratory Test 03/31/17 03/31/17 09:10 09:20 Urine Collection Type CLEAN CATCH Urine Color YELLOW Urine Turbidity CLEAR Urine pH 6.0 Urine Specific [place] 1.022 Urine Protein NEG mg/dL Urine Glucose (UA) NEG mg/dL Urine Ketones TRACE mg/dL Urine Occult Blood TRACE Urine Nitrite NEG Urine Bilirubin NEG Urine Leukocyte Esterase TRACE Urine RBC 0-3 /hpf Urine WBC 0-2 /hpf Urine Squamous Epithelial 0-5 /hpf Cells Urine Bacteria OCC /hpf Urine Mucus OCC /lpf Microscopic Urinalysis Comment CULT NOT INDICATED Urine Collection Time 09:10 White Blood Count 8.1 TH/MM3 Red Blood Count 4.33 MIL/MM3 Hemoglobin 13.6 GM/DL Hematocrit 40.4 % Mean Corpuscular Volume 93.4 FL Mean Corpuscular Hemoglobin 31.5 PG Mean Corpuscular Hemoglobin 33.7 % Concent Red Cell Distribution Width 11.8 % Platelet Count 252 TH/MM3 Mean Platelet Volume 8.0 FL Neutrophils (%) (Auto) 73.8 % Lymphocytes (%) (Auto) 17.1 % Monocytes (%) (Auto) 7.4 % Eosinophils (%) (Auto) 1.3 % Basophils (%) (Auto) 0.4 % Neutrophils # (Auto) 6.0 TH/MM3 Lymphocytes # (Auto) 1.4 TH/MM3 Monocytes # (Auto) 0.6 TH/MM3 Eosinophils # (Auto) 0.1 TH/MM3 Basophils # (Auto) 0.0 TH/MM3 CBC Comment DIFF FINAL Differential Comment Sodium Level 139 MEQ/L Potassium Level 4.0 MEQ/L Chloride Level 103 MEQ/L Carbon Dioxide Level 30.2 MEQ/L Anion Gap 6 MEQ/L Blood Urea Nitrogen 6 MG/DL Creatinine 0.71 MG/DL Estimat Glomerular Filtration 94 ML/MIN Rate Random Glucose 98 MG/DL Calcium Level 9.4 MG/DL Date/Time Procedure Status Source Growth 03/31/17 10:25 Aerobic Blood Culture Received Blood Peripheral Pending 03/31/17 10:25 Anaerobic Blood Culture Received Blood Peripheral Pending Physical Examination HEENT: Pupils round and reactive to light; normocephalic; atraumatic; no jaundice. Throat is clear. NECK: Neck is supple, no JVD, no lymphadenopathy. CHEST: Chest is clear to auscultation and percussion. CARDIAC: Regular rate and rhythm with no murmur gallop or rubs. ABDOMEN: Soft, mildly distended tender especially on the left side and left lower quadrant no guarding some rebound; no hepatosplenomegaly; bowel sounds are present in all four quadrants. EXTREMITIES: No clubbing, cyanosis, or edema. SKIN: Normal; no rash; no jaundice. INCIDENT RESPONSE ENGINEER: No focal deficits; alert and oriented times three. Assessment and Plan Plan Abdominal pain and abnormal imaging suggesting colitis and possible diverticulitis Agree with current supportive care Continue with IV antibiotics If no improvement over the next 1-2 days we'll pursue colonoscopy to further evaluate potential causes of colitis If patient is responding well to the antibiotics then patient to complete a two- week course and subsequently will have a colonoscopy as an outpatient in 4-6 weeks Further recommendations shall depend on her hospital course Yobani Logan MD March 31, 2017 20:48
[2017-03-31] MEDS: SODIUM CHLORIDE 0.9% FLUSH 10 ML FLUSH IV FLUSH SCH (21:00)
[2017-03-31] MEDS: busPIRone HCL 10 MG TAB PO SCH (21:03)
[2017-03-31] MEDS: CIPROFLOXACIN 400 MG PREMIX 200 ML IV SCH (23:06)
[2017-04-01] VITALS: BP 104/69; PULSE 66; RESP 18; TEMP 97.8; O2SAT 97
[2017-04-01] MEDS: ACETAMINOPHEN/HYDROcodone 325 MG/7.5 MG TAB PO PRN ×4 (01:21→17:42)
[2017-04-01] MEDS: metroNIDAZOLE 500 MG INJ 100 ML IV SCH ×4 (01:21→17:42)
[2017-04-01] MEDS: ONDANSETRON HCL 4 MG/2 ML VIAL IVP PRN ×3 (02:09→15:25)
[2017-04-01 07:55] LABS: ALKALINE PHOSPHATASE 57 U/L (45-117); ALT (GPT) 226 U/L (10-53); ANION GAP 7 MEQ/L (5-15); AST (GOT) 182 U/L (15-37); BICARBONATE 25.8 MEQ/L (21.0-32.0); BLOOD UREA NITROGEN 4 MG/DL (7-18); CHLORIDE 106 MEQ/L (98-107); GLOMERULAR FILTRATION RATE 112 ML/MIN (>89); SODIUM (NA) 139 MEQ/L (136-145)
[2017-04-01 07:57] LABS: POTASSIUM 5.4 MEQ/L (3.5-5.1)
[2017-04-01] MEDS: busPIRone HCL 10 MG TAB PO SCH ×2 (08:58→22:16)
[2017-04-01] MEDS: DOCUSATE SODIUM 100 MG CAP PO SCH ×2 (08:58→22:16)
[2017-04-01] MEDS: buPROPion HCL 150 MG SUSTAINED RELEASE TAB PO SCH (08:58)
[2017-04-01 09:53] VITALS: BP 111/75; PULSE 67; RESP 18; TEMP 97.3; O2SAT 97
--- NOTE | 2017-04-01 10:42 | HHI.PR ---
Subjective Remarks Patient still with pain and says she has dry heaves, not ablke to eat. No more diarrhea. Denies chest pain, sob. Feels weak and sick. Objective Vitals Vital Signs Date Time Temp Pulse Resp B/P Pulse Ox O2 Delivery O2 Flow Rate FiO2 04/01/17 09:53 97.3 67 18 111/75 97 04/01/17 07:44 16 04/01/17 00:00 97.8 66 18 104/69 97 03/31/17 20:00 98.2 76 18 109/80 96 03/31/17 17:01 97.9 79 18 128/89 95 03/31/17 15:22 18 03/31/17 12:10 76 16 111/76 98 Room Air 03/31/17 11:03 72 18 119/79 98 Room Air I/O 03/31/17 03/31/17 03/31/17 04/01/17 04/01/17 04/01/17 07:00 15:00 23:00 07:00 15:00 23:00 Intake Total 1300 ml 480 ml 480 ml Balance 1300 ml 480 ml 480 ml Intake Oral 480 ml 480 ml IV Total 1300 ml # Voids 2 2 2 # Bowel Movements 0 0 Result Diagram: 03/31/17 0920 04/01/17 0635 Imaging Last Impressions Abdomen/Pelvis CT 03/31/17 0855 Signed Impressions: Service Date/Time: March 09:32 - CONCLUSION: 1. Patient's symptoms appear to be related to a focal colitis involving the proximal and mid descending portions of the colon with colonic thickening and pericolonic stranding. No abscess. Etiology is likely uncomplicated diverticulitis. 2. Nonobstructing 1.5-2 mm isolated calculus in the midpole collecting system of the right kidney. No left renal or ureteral stones. Javier Mantilla MD Objective Remarks GENERAL: This is a well-nourished, well-developed patient, in no apparent distress. SKIN: No rashes, ecchymoses or lesions. Cool and dry. HEAD: Atraumatic. Normocephalic. No temporal or scalp tenderness. EYES: Pupils equal round and reactive. Extraocular motions intact. No scleral icterus. No injection or drainage. ENT: Nose without bleeding, purulent drainage or septal hematoma. Throat without erythema, tonsillar hypertrophy or exudate. Uvula midline. Airway patent. NECK: Trachea midline. No JVD or lymphadenopathy. Supple, nontender, no meningeal signs. CARDIOVASCULAR: Regular rate and rhythm without murmurs, gallops, or rubs. RESPIRATORY: Clear to auscultation. Breath sounds equal bilaterally. No wheezes , rales, or rhonchi. GASTROINTESTINAL: Abdomen soft, diffuse tenderness, nondistended. No hepato- splenomegaly, or palpable masses. No guarding. MUSCULOSKELETAL: Extremities without clubbing, cyanosis, or edema. No joint tenderness, effusion, or edema noted. No calf tenderness. Negative Homans sign bilaterally. NEUROLOGICAL: Awake and alert. Cranial nerves II through XII intact. Motor and sensory grossly within normal limits. Five out of 5 muscle strength in all muscle groups. Normal speech. A/P Assessment and Plan Intractable abdominal pain Colitis involving proximal and mid descending colon. Uncomplicated diverticulitis. Nonobstructive 1.5-2 mm right kidney stone Depression/anxiety H/o substance use (per , but patient denies, also says her parents doesn't know) Continue IV abx ciprofloxacin and flagyl IVF Monitor VS Pain meds per pain scale Also added dicyclomine Consult GI , appreciate recommendations. Poss colonoscopy if no improvement DVT ppx scd/teds/lovenox Discussed Condition With patient, nurse Mary Ann Nix MD April 01, 2017 10:42
[2017-04-01] MEDS: CIPROFLOXACIN 400 MG PREMIX 200 ML IV SCH (12:15)
[2017-04-01] MEDS: SODIUM CHLORIDE 0.9% FLUSH 10 ML FLUSH IV FLUSH SCH ×2 (12:17→21:00)
[2017-04-01] MEDS: ENOXAPARIN SODIUM 40 MG/0.4 ML SYRINGE SQ SCH (12:18)
[2017-04-01] MEDS: SODIUM CHLOR 0.9% 1000 ML INJ 1,000 ML IV SCH ×2 (12:18→22:16)
[2017-04-01 13:30] VITALS: BP 125/89; PULSE 72; RESP 19; TEMP 98.1; O2SAT 98
[2017-04-01 16:25] VITALS: BP 117/74; PULSE 73; RESP 18; TEMP 98.1; O2SAT 98
--- NOTE | 2017-04-01 17:03 | HHI.GIFU ---
GI Follow-up Note Consult Follow-up Subjective: Patient laying in bed comfortably, has nausea, vomiting .Diarrhea better, pain better with antibiotics . Objective: PHYSICAL EXAMINATION: Vitals signs stable No fever Vital Signs Date Time Temp Pulse Resp B/P Pulse Ox O2 Delivery O2 Flow Rate FiO2 04/01/17 16:25 98.1 73 18 117/74 98 04/01/17 13:30 98.1 72 19 125/89 98 04/01/17 09:53 97.3 67 18 111/75 97 HEENT: Pupils round and reactive to light; normocephalic; atraumatic; no jaundice. Throat is clear. NECK: Neck is supple, no JVD, no lymphadenopathy. CHEST: Chest is clear to auscultation and percussion. CARDIAC: Regular rate and rhythm with no murmur gallop or rubs. ABDOMEN: Soft, nondistended, generalized tenderness ; no hepatosplenomegaly; bowel sounds are present in all four quadrants. EXTREMITIES: No clubbing, cyanosis, or edema. SKIN: Normal; no rash; no jaundice. SIDE STAPLER: No focal deficits; alert and oriented times three. Available Data (labs, X- Rays, Procedues) : Laboratory Tests Test 03/31/17 03/31/17 04/01/17 09:10 09:20 06:35 Urine Collection Type CLEAN CATCH Urine Color YELLOW Urine Turbidity CLEAR Urine pH 6.0 Urine Specific [place] 1.022 Urine Protein NEG mg/dL Urine Glucose (UA) NEG mg/dL Urine Ketones TRACE mg/dL Urine Occult Blood TRACE Urine Nitrite NEG Urine Bilirubin NEG Urine Leukocyte Esterase TRACE Urine RBC 0-3 /hpf Urine WBC 0-2 /hpf Urine Squamous Epithelial 0-5 /hpf Cells Urine Bacteria OCC /hpf Urine Mucus OCC /lpf Microscopic Urinalysis Comment CULT NOT INDICATED Urine Collection Time 09:10 White Blood Count 8.1 TH/MM3 Red Blood Count 4.33 MIL/MM3 Hemoglobin 13.6 GM/DL Hematocrit 40.4 % Mean Corpuscular Volume 93.4 FL Mean Corpuscular Hemoglobin 31.5 PG Mean Corpuscular Hemoglobin 33.7 % Concent Red Cell Distribution Width 11.8 % Platelet Count 252 TH/MM3 Mean Platelet Volume 8.0 FL Neutrophils (%) (Auto) 73.8 % Lymphocytes (%) (Auto) 17.1 % Monocytes (%) (Auto) 7.4 % Eosinophils (%) (Auto) 1.3 % Basophils (%) (Auto) 0.4 % Neutrophils # (Auto) 6.0 TH/MM3 Lymphocytes # (Auto) 1.4 TH/MM3 Monocytes # (Auto) 0.6 TH/MM3 Eosinophils # (Auto) 0.1 TH/MM3 Basophils # (Auto) 0.0 TH/MM3 CBC Comment DIFF FINAL Differential Comment Sodium Level 139 MEQ/L 139 MEQ/L Potassium Level 4.0 MEQ/L 5.4 MEQ/L Chloride Level 103 MEQ/L 106 MEQ/L Carbon Dioxide Level 30.2 MEQ/L 25.8 MEQ/L Anion Gap 6 MEQ/L 7 MEQ/L Blood Urea Nitrogen 6 MG/DL 4 MG/DL Creatinine 0.71 MG/DL 0.61 MG/DL Estimat Glomerular Filtration 94 ML/MIN 112 ML/MIN Rate Random Glucose 98 MG/DL 88 MG/DL Calcium Level 9.4 MG/DL 8.6 MG/DL Total Bilirubin 1.0 MG/DL Aspartate Amino Transf 182 U/L (AST/SGOT) Alanine Aminotransferase 226 U/L (ALT/SGPT) Alkaline Phosphatase 57 U/L Total Protein 7.7 GM/DL Albumin 3.4 GM/DL ASSESSMENT/PLAN: colitis/diverticulitis clinically better elevated lfts -history of IVDA we will send serology nausea, vomiting-possible medication induced , needs further w-up Recommendations hida scan stool studies hepatitis profile, josiah, Asma , ama drug screen full liquid diet egd/colonoscopy op if clinically better, if not in patient before dc It was a pleasure seeing Charles Bell. Thank you for this consult. Entered by: Tamra Red MD April 01, 2017 17:03
[2017-04-01 19:24] LABS: FERRITIN 122 NG/ML (8-252); TRANSFERRIN IRON PROFILE 203 MG/DL (200-360)
[2017-04-01 20:18] VITALS: BP 116/72; PULSE 70; RESP 14; TEMP 97.7; O2SAT 99
[2017-04-02 00:08] VITALS: BP 107/69; PULSE 71; RESP 14; TEMP 98.2; O2SAT 98
[2017-04-02] MEDS: metroNIDAZOLE 500 MG INJ 100 ML IV SCH ×4 (00:15→18:09)
[2017-04-02] MEDS: CIPROFLOXACIN 400 MG PREMIX 200 ML IV SCH ×3 (00:15→23:27)
[2017-04-02] MEDS: ACETAMINOPHEN/HYDROcodone 325 MG/7.5 MG TAB PO PRN ×4 (00:18→23:32)
[2017-04-02] MEDS: SODIUM CHLOR 0.9% 1000 ML INJ 1,000 ML IV SCH ×3 (03:34→23:27)
[2017-04-02 07:42] LABS: BASOPHIL # 0.1 TH/MM3 (0-0.2); BASOPHIL % 1.6 % (0.0-2.0); EOSINOPHIL # 0.2 TH/MM3 (0-0.4); EOSINOPHIL % 3.8 % (0.0-4.0); HEMATOCRIT 36.3 % (35.0-46.0); HEMO FLAGS DIFF FINAL; LYMPH % 22.4 % (9.0-44.0); LYMPHOCYTE # 1.1 TH/MM3 (1.0-4.8); MEAN CELL VOLUME 93.5 FL (80.0-100.0); MEAN CORPUSCULAR HEMOGLOBIN 31.7 PG (27.0-34.0); MEAN CORPUSCULAR HGB CONC 33.9 % (32.0-36.0); MONO % 6.9 % (0.0-8.0); NEUT % 65.3 % (16.0-70.0); PLATELET COUNT 218 TH/MM3 (150-450); RED BLOOD COUNT 3.88 MIL/MM3 (4.00-5.30); RED CELL DISTRIBUTION WIDTH 11.3 % (11.6-17.2); WHITE BLOOD COUNT 4.7 TH/MM3 (4.0-11.0)
[2017-04-02 08:00] VITALS: BP 117/63; PULSE 72; RESP 20; TEMP 98.3; O2SAT 98
[2017-04-02 08:11] LABS: ALKALINE PHOSPHATASE 54 U/L (45-117); ALT (GPT) 194 U/L (10-53); ANION GAP 11 MEQ/L (5-15); AST (GOT) 136 U/L (15-37); BICARBONATE 22.4 MEQ/L (21.0-32.0); BLOOD UREA NITROGEN 4 MG/DL (7-18); CHLORIDE 106 MEQ/L (98-107); GLOMERULAR FILTRATION RATE 126 ML/MIN (>89); POTASSIUM 3.5 MEQ/L (3.5-5.1); SODIUM (NA) 139 MEQ/L (136-145); TOTAL BILIRUBIN ADULT 0.7 MG/DL (0.2-1.0)
[2017-04-02] MEDS: SODIUM CHLORIDE 0.9% FLUSH 10 ML FLUSH IV FLUSH SCH ×2 (08:53→20:07)
[2017-04-02] MEDS: DOCUSATE SODIUM 100 MG CAP PO SCH ×2 (08:54→20:07)
[2017-04-02] MEDS: ONDANSETRON HCL 4 MG/2 ML VIAL IVP PRN ×2 (08:54→15:14)
[2017-04-02] MEDS: buPROPion HCL 150 MG SUSTAINED RELEASE TAB PO SCH (08:54)
[2017-04-02] MEDS: busPIRone HCL 10 MG TAB PO SCH ×2 (08:54→20:07)
--- NOTE | 2017-04-02 10:39 | HHI.PR ---
Subjective Remarks Patient in nad. Says she doesn't have diarrhea. Abdominal pain is improving. Some nausea, no vomiting. Was ablke to keep some breakfast down. No fever or chills. Objective Vitals Vital Signs Date Time Temp Pulse Resp B/P Pulse Ox O2 Delivery O2 Flow Rate FiO2 04/02/17 08:00 98.3 72 20 117/63 98 04/02/17 00:08 98.2 71 14 107/69 98 04/01/17 20:18 97.7 70 14 116/72 99 04/01/17 16:25 98.1 73 18 117/74 98 04/01/17 13:30 98.1 72 19 125/89 98 04/01/17 13:13 16 I/O 04/01/17 04/01/17 04/01/17 04/02/17 04/02/17 04/02/17 07:00 15:00 23:00 07:00 15:00 23:00 Intake Total 480 ml 1150 ml 1600 ml Balance 480 ml 1150 ml 1600 ml Intake Oral 480 ml 1150 ml IV Total 1600 ml # Voids 2 3 # Bowel Movements 0 1 1 Result Diagram: 04/02/17 0421 04/02/17 0421 Imaging Last Impressions Abdomen/Pelvis CT 03/31/17 0855 Signed Impressions: Service Date/Time: March 09:32 - CONCLUSION: 1. Patient's symptoms appear to be related to a focal colitis involving the proximal and mid descending portions of the colon with colonic thickening and pericolonic stranding. No abscess. Etiology is likely uncomplicated diverticulitis. 2. Nonobstructing 1.5-2 mm isolated calculus in the midpole collecting system of the right kidney. No left renal or ureteral stones. Javier Mantilla MD Objective Remarks GENERAL: This is a well-nourished, well-developed patient, in no apparent distress. SKIN: No rashes, ecchymoses or lesions. Cool and dry. HEAD: Atraumatic. Normocephalic. No temporal or scalp tenderness. EYES: Pupils equal round and reactive. Extraocular motions intact. No scleral icterus. No injection or drainage. ENT: Nose without bleeding, purulent drainage or septal hematoma. Throat without erythema, tonsillar hypertrophy or exudate. Uvula midline. Airway patent. NECK: Trachea midline. No JVD or lymphadenopathy. Supple, nontender, no meningeal signs. CARDIOVASCULAR: Regular rate and rhythm without murmurs, gallops, or rubs. RESPIRATORY: Clear to auscultation. Breath sounds equal bilaterally. No wheezes , rales, or rhonchi. GASTROINTESTINAL: Abdomen soft, diffuse tenderness, nondistended. No hepato- splenomegaly, or palpable masses. No guarding. MUSCULOSKELETAL: Extremities without clubbing, cyanosis, or edema. No joint tenderness, effusion, or edema noted. No calf tenderness. Negative Homans sign bilaterally. NEUROLOGICAL: Awake and alert. Cranial nerves II through XII intact. Motor and sensory grossly within normal limits. Five out of 5 muscle strength in all muscle groups. Normal speech. A/P Assessment and Plan Intractable abdominal pain. Improving Colitis involving proximal and mid descending colon. Uncomplicated diverticulitis. Nonobstructive 1.5-2 mm right kidney stone Depression/anxiety H/o substance use (per , but patient denies, also says her parents doesn't know) Continue IV abx ciprofloxacin and flagyl Continue IVF Monitor VS Pain meds per pain scale Cont dicyclomine Consult GI , appreciate recommendations. Plan for HIDA scan today DVT ppx scd/teds/lovenox Discussed Condition With patient, nurse DC plan: Pending improvement and clearance for GI . Plan for HIDA scan Mary Ann Nix MD April 02, 2017 10:39
--- NOTE | 2017-04-02 11:42 | HHI.GIFU ---
Subjective Remarks Patient feels her pain is improving but it still localized to left lower quadrant still having some nausea and in fact she is about to go down for her hida scan Objective Vitals I&O Vital Signs Date Time Temp Pulse Resp B/P Pulse Ox O2 Delivery O2 Flow Rate FiO2 04/02/17 08:00 98.3 72 20 117/63 98 04/02/17 00:08 98.2 71 14 107/69 98 04/01/17 20:18 97.7 70 14 116/72 99 04/01/17 16:25 98.1 73 18 117/74 98 04/01/17 13:30 98.1 72 19 125/89 98 04/01/17 13:13 16 I/O 04/01/17 04/01/17 04/01/17 04/02/17 04/02/17 04/02/17 07:00 15:00 23:00 07:00 15:00 23:00 Intake Total 480 ml 1150 ml 1600 ml Balance 480 ml 1150 ml 1600 ml Intake Oral 480 ml 1150 ml IV Total 1600 ml # Voids 2 3 # Bowel Movements 0 1 1 Laboratory Laboratory Tests Test 04/01/17 04/02/17 17:55 04:21 Iron Level 53 Total Iron Binding Capacity 284 Percent Iron Saturation 18.6 Ferritin 122 White Blood Count 4.7 Red Blood Count 3.88 Hemoglobin 12.3 Hematocrit 36.3 Mean Corpuscular Volume 93.5 Mean Corpuscular Hemoglobin 31.7 Mean Corpuscular Hemoglobin 33.9 Concent Red Cell Distribution Width 11.3 Platelet Count 218 Mean Platelet Volume 8.3 Neutrophils (%) (Auto) 65.3 Lymphocytes (%) (Auto) 22.4 Monocytes (%) (Auto) 6.9 Eosinophils (%) (Auto) 3.8 Basophils (%) (Auto) 1.6 Neutrophils # (Auto) 3.0 Lymphocytes # (Auto) 1.1 Monocytes # (Auto) 0.3 Eosinophils # (Auto) 0.2 Basophils # (Auto) 0.1 CBC Comment DIFF FINAL Differential Comment Sodium Level 139 Potassium Level 3.5 Chloride Level 106 Carbon Dioxide Level 22.4 Anion Gap 11 Blood Urea Nitrogen 4 Creatinine 0.55 Estimat Glomerular Filtration 126 Rate Random Glucose 87 Calcium Level 8.7 Total Bilirubin 0.7 Aspartate Amino Transf 136 (AST/SGOT) Alanine Aminotransferase 194 (ALT/SGPT) Alkaline Phosphatase 54 Total Protein 7.1 Albumin 3.3 Date/Time Procedure Status Source Growth 03/31/17 10:25 Aerobic Blood Culture - Preliminary Resulted Blood Peripheral NO GROWTH IN 2 DAYS 03/31/17 10:25 Anaerobic Blood Culture - Preliminary Resulted Blood Peripheral NO GROWTH IN 2 DAYS Physical Exam HEENT: normocephalic; atraumatic; no jaundice. Throat is clear. NECK: Neck is supple, CHEST: Chest is clear to auscultation and percussion. CARDIAC: Regular rate and rhythm with no murmur gallop or rubs. ABDOMEN: Soft, nondistended, left-sided and left lower quadrant tenderness no rebound or guarding; no hepatosplenomegaly; bowel sounds are present in all four quadrants. EXTREMITIES: No clubbing, cyanosis, or edema. SKIN: Normal; no rash; no jaundice. 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 Assessment and Plan Plan Abdominal pain and abnormal imaging suggesting colitis and possible diverticulitis Elevated liver function tests and history of drug abuse Agree with current supportive care Continue with IV antibiotics Possible colonoscopy on Tuesday if improvement is still slow Liver workup in progress Further recommendations shall depend on her hospital course Yobani Logan MD April 02, 2017 11:42
[2017-04-02 12:00] VITALS: BP 126/91; PULSE 85; RESP 20; TEMP 98.5; O2SAT 95
[2017-04-02] MEDS: ENOXAPARIN SODIUM 40 MG/0.4 ML SYRINGE SQ SCH (13:40)
[2017-04-02 14:24] LABS: AMPHETAMINE, URINE NEG (NEG); BARBITURATES, URINE NEG (NEG)
[2017-04-02 14:25] LABS: COCAINE, URINE NEG (NEG)
--- NOTE | 2017-04-02 15:25 | RADHPO ---
EXAM DATE/TIME: 04/02/2017 11:30 [facility] COMPARISON: CT ABDOMEN & PELVIS W/O CONTRAST, March 31, 2017, 9:32. INDICATIONS : Right upper quadrant pain with nausea and vomiting for two weeks. DOSE: 4.1 mCi Tc99m Mebrofenin IV MEDICAL HISTORY : None SURGICAL HISTORY : Laparotomy. ENCOUNTER: Initial ACUITY: 2 weeks PAIN SCALE: 6/10 LOCATION: Right upper quadrant TECHNIQUE: Following the intravenous administration of radiotracer, dynamic sequential images were performed wit h continuous acquisition. FINDINGS: HEPATIC KINETICS: There is prompt uptake of radiotracer in the liver. No focal defects are seen. There is normal rate of washout from the hepatic parenchyma. BILIARY CLEARANCE: Activity is first seen in the extrahepatic biliary system at 10 minutes. There is normal excretion i nto the small bowel. GALLBLADDER: Activity is first seen in the gallbladder at 70 minutes. Common bile duct kinetics are normal and th ere is no evidence of biliary obstruction. BILIARY ENTRIC REFLUX: None observed. CONCLUSION: Delayed filling of the gallbladder which can suggest some chronic change. However, the gallbladder cl early fills. Biliary obstruction is not seen. Quinn Mcnair MD on April 02, 2017 at 15:20 Board Certified Radiologist. This report was verified electronically.
[2017-04-02 16:00] VITALS: BP 137/76; PULSE 67; RESP 20; TEMP 98.8; O2SAT 99
[2017-04-02] MEDS: HYDROmorphone HCL PF 1 MG/ML VIAL IV PRN (18:09)
[2017-04-02 21:26] VITALS: BP 127/79; PULSE 63; RESP 16; TEMP 98; O2SAT 98
[2017-04-03] MEDS: metroNIDAZOLE 500 MG INJ 100 ML IV SCH ×5 (00:42→23:59)
[2017-04-03] MEDS: METOCLOPRAMIDE HCL 10 MG/2 ML VIAL IVS PRN ×4 (00:56→22:41)
[2017-04-03 00:57] VITALS: BP 113/70; PULSE 73; RESP 14; TEMP 97.7; O2SAT 97
[2017-04-03] MEDS: SODIUM CHLOR 0.9% 1000 ML INJ 1,000 ML IV SCH ×2 (05:12→21:05)
[2017-04-03] MEDS: SODIUM CHLORIDE 0.9% FLUSH 10 ML FLUSH IV FLUSH SCH ×2 (07:41→21:05)
[2017-04-03] MEDS: DOCUSATE SODIUM 100 MG CAP PO SCH ×3 (07:42→21:05)
[2017-04-03] MEDS: HYDROmorphone HCL PF 1 MG/ML VIAL IV PRN ×2 (07:42→11:40)
[2017-04-03] MEDS: buPROPion HCL 150 MG SUSTAINED RELEASE TAB PO SCH (07:42)
[2017-04-03] MEDS: busPIRone HCL 10 MG TAB PO SCH ×2 (07:42→21:05)
[2017-04-03 08:00] VITALS: BP 127/88; PULSE 72; RESP 20; TEMP 96.3; O2SAT 98
[2017-04-03 09:00] LABS: CHLORIDE 106 MEQ/L (98-107); POTASSIUM 3.8 MEQ/L (3.5-5.1); SODIUM (NA) 140 MEQ/L (136-145)
[2017-04-03 09:06] LABS: ANION GAP 10 MEQ/L (5-15); BICARBONATE 23.9 MEQ/L (21.0-32.0)
[2017-04-03 09:07] LABS: BLOOD UREA NITROGEN 4 MG/DL (7-18)
[2017-04-03 09:10] LABS: ALT (GPT) 195 U/L (10-53); AST (GOT) 149 U/L (15-37); GLOMERULAR FILTRATION RATE 116 ML/MIN (>89)
[2017-04-03 09:11] LABS: TOTAL BILIRUBIN ADULT 0.7 MG/DL (0.2-1.0)
[2017-04-03 09:12] LABS: ALKALINE PHOSPHATASE 56 U/L (45-117)
--- NOTE | 2017-04-03 09:25 | HHI.PR ---
Subjective Remarks Still nauseated., did vomit once last night. No fever or chills. Abdominal pain improved. Had a soft BM yesterday. Able to eat some breakfast, still with nausea. Objective Vitals Vital Signs Date Time Temp Pulse Resp B/P Pulse Ox O2 Delivery O2 Flow Rate FiO2 04/03/17 08:15 18 04/03/17 08:00 96.3 72 20 127/88 98 04/03/17 05:16 04/03/17 00:57 97.7 73 14 113/70 97 04/02/17 21:26 98.0 63 16 127/79 98 04/02/17 16:33 16 04/02/17 16:00 98.8 67 20 137/76 99 04/02/17 12:00 98.5 85 20 126/91 95 I/O 04/02/17 04/02/17 04/02/17 04/03/17 04/03/17 04/03/17 07:00 15:00 23:00 07:00 15:00 23:00 Intake Total 1600 ml 1180 ml 1200 ml Output Total 250 ml Balance 1600 ml 930 ml 1200 ml Intake Oral 480 ml IV Total 1600 ml 700 ml 1200 ml Output Urine Total 250 ml # Voids 5 2 # Bowel Movements 1 1 0 Result Diagram: 04/02/17 0421 04/03/17 0829 Imaging Last Impressions Hepatobiliary Scan Nuclear Medicine 04/02/17 0000 Signed Impressions: Service Date/Time: Sunday, April 02, 2017 11:30 - CONCLUSION: Delayed filling of the gallbladder which can suggest some chronic change. However, the gallbladder clearly fills. Biliary obstruction is not seen. Quinn Mcnair MD Abdomen/Pelvis CT 03/31/17 0855 Signed Impressions: Service Date/Time: March 09:32 - CONCLUSION: 1. Patient's symptoms appear to be related to a focal colitis involving the proximal and mid descending portions of the colon with colonic thickening and pericolonic stranding. No abscess. Etiology is likely uncomplicated diverticulitis. 2. Nonobstructing 1.5-2 mm isolated calculus in the midpole collecting system of the right kidney. No left renal or ureteral stones. Javier Mantilla MD Objective Remarks GENERAL: This is a well-nourished, well-developed patient, in no apparent distress. SKIN: No rashes, ecchymoses or lesions. Cool and dry. HEAD: Atraumatic. Normocephalic. No temporal or scalp tenderness. EYES: Pupils equal round and reactive. Extraocular motions intact. No scleral icterus. No injection or drainage. ENT: Nose without bleeding, purulent drainage or septal hematoma. Throat without erythema, tonsillar hypertrophy or exudate. Uvula midline. Airway patent. NECK: Trachea midline. No JVD or lymphadenopathy. Supple, nontender, no meningeal signs. CARDIOVASCULAR: Regular rate and rhythm without murmurs, gallops, or rubs. RESPIRATORY: Clear to auscultation. Breath sounds equal bilaterally. No wheezes , rales, or rhonchi. GASTROINTESTINAL: Abdomen soft, diffuse tenderness, nondistended. No hepato- splenomegaly, or palpable masses. No guarding. MUSCULOSKELETAL: Extremities without clubbing, cyanosis, or edema. No joint tenderness, effusion, or edema noted. No calf tenderness. Negative Homans sign bilaterally. NEUROLOGICAL: Awake and alert. Cranial nerves II through XII intact. Motor and sensory grossly within normal limits. Five out of 5 muscle strength in all muscle groups. Normal speech. A/P Assessment and Plan Intractable abdominal pain. Improving Colitis involving proximal and mid descending colon. Uncomplicated diverticulitis. Nonobstructive 1.5-2 mm right kidney stone Depression/anxiety H/o substance use (per , but patient denies, also says her parents doesn't know) Transaminitis. LFT improving. Monitor. Continue IV abx ciprofloxacin and flagyl Continue IVF Monitor VS Pain meds per pain scale Cont dicyclomine Consult GI , appreciate recommendations. S/P HIDA scan Delayed filling of the gallbladder which can suggest some chronic change. However, the gallbladder clearly fills. Biliary obstruction is not seen. Poss colonoscopy on Tuesday per GI if no imprpvemet DVT ppx scd/teds/lovenox Discussed Condition With patient, nurse DC plan: Pending improvement and clearance for GI. Mary Ann Nix MD April 03, 2017 09:25
[2017-04-03] MEDS: CIPROFLOXACIN 400 MG PREMIX 200 ML IV SCH ×2 (11:40→22:41)
[2017-04-03] MEDS: ENOXAPARIN SODIUM 40 MG/0.4 ML SYRINGE SQ SCH (11:40)
[2017-04-03 12:00] VITALS: BP 120/82; PULSE 99; RESP 20; TEMP 97.4; O2SAT 98
[2017-04-03 16:00] VITALS: BP 134/86; PULSE 58; RESP 16; TEMP 98; O2SAT 99
[2017-04-03 21:00] VITALS: BP 127/86; PULSE 60; RESP 16; TEMP 98.9; O2SAT 95
--- NOTE | 2017-04-03 23:58 | HHI.GIFU ---
Subjective Remarks feels better, no abdominal pain, tolerating diet Objective Vitals I&O Vital Signs Date Time Temp Pulse Resp B/P Pulse Ox O2 Delivery O2 Flow Rate FiO2 04/03/17 21:00 98.9 60 16 127/86 95 04/03/17 16:00 98.0 58 16 134/86 99 04/03/17 12:17 18 04/03/17 12:00 97.4 99 20 120/82 98 04/03/17 08:00 96.3 72 20 127/88 98 04/03/17 05:16 04/03/17 00:57 97.7 73 14 113/70 97 I/O 04/02/17 04/02/17 04/02/17 04/03/17 04/03/17 04/03/17 07:00 15:00 23:00 07:00 15:00 23:00 Intake Total 1600 ml 1180 ml 1200 ml 570 ml Output Total 250 ml Balance 1600 ml 930 ml 1200 ml 570 ml Intake Oral 480 ml 570 ml IV Total 1600 ml 700 ml 1200 ml Output Urine Total 250 ml # Voids 5 2 8 # Bowel Movements 1 1 0 2 Laboratory Laboratory Tests Test 04/03/17 08:29 Sodium Level 140 Potassium Level 3.8 Chloride Level 106 Carbon Dioxide Level 23.9 Anion Gap 10 Blood Urea Nitrogen 4 Creatinine 0.59 Estimat Glomerular Filtration 116 Rate Random Glucose 99 Calcium Level 8.7 Total Bilirubin 0.7 Aspartate Amino Transf 149 (AST/SGOT) Alanine Aminotransferase 195 (ALT/SGPT) Alkaline Phosphatase 56 Total Protein 7.4 Albumin 3.5 Date/Time Procedure Status Source Growth 04/02/17 08:30 Cryptosporidium Exam Received Stool Stool Pending 04/02/17 08:30 Giardia Antigen (NICK) Received Stool Stool Pending 03/31/17 10:25 Aerobic Blood Culture - Preliminary Resulted Blood Peripheral NO GROWTH IN 3 DAYS 03/31/17 10:25 Anaerobic Blood Culture - Preliminary Resulted Blood Peripheral NO GROWTH IN 3 DAYS Physical Exam HEENT: normocephalic; atraumatic; no jaundice. Throat is clear. NECK: Neck is supple, CHEST: Chest is clear to auscultation and percussion. CARDIAC: Regular rate and rhythm with no murmur gallop or rubs. ABDOMEN: Soft, nondistended, no abdominal tenderness no rebound or guarding; no hepatosplenomegaly; bowel sounds are present in all four quadrants. EXTREMITIES: No clubbing, cyanosis, or edema. SKIN: Normal; no rash; no jaundice. 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 Assessment and Plan Plan Abdominal pain and abnormal imaging suggesting colitis and possible diverticulitis Elevated liver function tests and history of drug abuse Agree with current supportive care Continue with IV antibiotics colonoscopy as outpatient Liver workup in progress could follow that as outpatient Further recommendations shall depend on her hospital course Ernesto Davis MD April 03, 2017 23:57
[2017-04-04 00:42] VITALS: BP 120/81; PULSE 67; RESP 16; TEMP 98.5; O2SAT 97
[2017-04-04] MEDS: metroNIDAZOLE 500 MG INJ 100 ML IV SCH (05:39)
[2017-04-04] MEDS: SODIUM CHLOR 0.9% 1000 ML INJ 1,000 ML IV SCH (05:40)
[2017-04-04 08:00] VITALS: BP 132/92; PULSE 73; RESP 18; TEMP 97.9; O2SAT 98
[2017-04-04 08:09] LABS: CHLORIDE 106 MEQ/L (98-107); POTASSIUM 3.3 MEQ/L (3.5-5.1); SODIUM (NA) 142 MEQ/L (136-145)
[2017-04-04 08:23] LABS: ALT (GPT) 181 U/L (10-53); ANION GAP 12 MEQ/L (5-15); AST (GOT) 133 U/L (15-37); BICARBONATE 24.3 MEQ/L (21.0-32.0); BLOOD UREA NITROGEN 3 MG/DL (7-18)
[2017-04-04 08:24] LABS: TOTAL BILIRUBIN ADULT 0.6 MG/DL (0.2-1.0)
[2017-04-04 08:25] LABS: ALKALINE PHOSPHATASE 58 U/L (45-117)
[2017-04-04 08:26] LABS: GLOMERULAR FILTRATION RATE 123 ML/MIN (>89)
[2017-04-04] MEDS: DOCUSATE SODIUM 100 MG CAP PO SCH (09:00)
[2017-04-04] MEDS: SODIUM CHLORIDE 0.9% FLUSH 10 ML FLUSH IV FLUSH SCH (09:36)
[2017-04-04] MEDS: buPROPion HCL 150 MG SUSTAINED RELEASE TAB PO SCH (09:37)
[2017-04-04] MEDS: busPIRone HCL 10 MG TAB PO SCH (09:37)
[2017-04-04] MEDS: CIPROFLOXACIN 400 MG PREMIX 200 ML IV SCH (09:37)
[2017-04-04] MEDS ORDERED: METR-1 PO (10:43)
[2017-04-04] MEDS ORDERED: LACTTAB8 PO (10:43)
[2017-04-04] MEDS ORDERED: CIPR-9 PO (10:43)
[2017-04-04] MEDS ORDERED: POTASSIUM CHLORIDE 10 MEQ CONTROLLED RELEASE TAB PO ONE (11:00)
--- NOTE | 2017-04-04 11:40 | HHI.GIFU ---
Subjective Remarks Feeling better today, no abdominal pain or diarrhea, denies N/V. tolerating diet , going home today. Objective Vitals I&O Vital Signs Date Time Temp Pulse Resp B/P Pulse Ox O2 Delivery O2 Flow Rate FiO2 04/04/17 08:00 97.9 73 18 132/92 98 04/04/17 00:42 98.5 67 16 120/81 97 04/03/17 21:00 98.9 60 16 127/86 95 04/03/17 16:00 98.0 58 16 134/86 99 04/03/17 12:17 18 04/03/17 12:00 97.4 99 20 120/82 98 I/O 04/03/17 04/03/17 04/03/17 04/04/17 04/04/17 04/04/17 07:00 15:00 23:00 07:00 15:00 23:00 Intake Total 1200 ml 570 ml 300 ml 1200 ml Balance 1200 ml 570 ml 300 ml 1200 ml Intake Oral 570 ml IV Total 1200 ml 300 ml 1200 ml # Voids 8 # Bowel Movements 2 Laboratory Laboratory Tests Test 04/04/17 07:30 Sodium Level 142 Potassium Level 3.3 Chloride Level 106 Carbon Dioxide Level 24.3 Anion Gap 12 Blood Urea Nitrogen 3 Creatinine 0.56 Estimat Glomerular Filtration 123 Rate Random Glucose 95 Calcium Level 8.9 Total Bilirubin 0.6 Direct Bilirubin 0.3 Aspartate Amino Transf 133 (AST/SGOT) Alanine Aminotransferase 181 (ALT/SGPT) Alkaline Phosphatase 58 Total Protein 7.8 Albumin 3.7 Date/Time Procedure Status Source Growth 04/02/17 08:30 Cryptosporidium Exam - Final Complete Stool Stool NEGATIVE - NO CRYPTOSPORIDIUM ANTIGEN... 04/02/17 08:30 Giardia Antigen (NICK) - Final Complete Stool Stool NEGATIVE - NO GIARDIA ANTIGEN DETECTE... 03/31/17 10:25 Aerobic Blood Culture - Preliminary Resulted Blood Peripheral NO GROWTH IN 4 DAYS 03/31/17 10:25 Anaerobic Blood Culture - Preliminary Resulted Blood Peripheral NO GROWTH IN 4 DAYS Imaging Last 72 hours Impressions Hepatobiliary Scan Nuclear Medicine 04/02/17 0000 Signed Impressions: Service Date/Time: Tuesday, April 02, 2017 11:30 - CONCLUSION: Delayed filling of the gallbladder which can suggest some chronic change. However, the gallbladder clearly fills. Biliary obstruction is not seen. Quinn Mcnair MD Physical Exam HEENT: normocephalic; atraumatic; no jaundice. Throat is clear. NECK: Neck is supple, CHEST: Chest is clear to auscultation and percussion. CARDIAC: Regular rate and rhythm with no murmur gallop or rubs. ABDOMEN: Soft, nondistended, no abdominal tenderness no rebound or guarding; no hepatosplenomegaly; bowel sounds are present in all four quadrants. EXTREMITIES: No clubbing, cyanosis, or edema. SKIN: Normal; no rash; no jaundice. EXTRACT MIXER: No focal deficits; alert and oriented times three. Assessment and Plan Plan Abdominal pain and abnormal imaging suggesting colitis and possible diverticulitis Elevated liver function tests and history of drug abuse Hepatitis profile and labs for liver work up pending Plan Colonoscopy as outpatient Liver workup in progress follow labs as outpatient Follow up with GI outpatient Patient was seen and examined by Dr. Davis and myself, this note is written on his behalf. Lilian Rodarte April 04, 2017 11:40
[2017-04-04 13:23] LABS: ANA SCREEN NEG (NEG)
--- NOTE | 2017-04-04 13:35 | HHI.DS ---
Discharge Summary Admission Date March 31, 2017 at 11:33 am Discharge Date: April 04, 2017 Admitting Diagnosis acute diverticulitis, intractable pain (1) Acute diverticulitis ICD Code: K57.92 Diagnosis: Principal (2) Intractable abdominal pain ICD Code: R10.9 Diagnosis: Principal Procedures None Brief History - From Admission 36-year-old female came to the emergency room with history of sudden onset left flank pain since 2 AM that woke her up from sleep. Patient says that the pain is sharp and excruciating and radiates down to her left lower quadrant. She has never experienced this kind of pain in the past. She gave a urine sample prior to the knee coming in to see her and the urine appeared blood tinged. History of fever or chills. She has been nauseous and vomited few times. Patient says that she was diagnosed with acute gastritis 2 weeks ago when she was vomiting. She was sent home on Zofran and an antacid. Patient took the Zofran that she had from her prescription for nausea that has helped some. She looks uncomfortable. Vital signs are otherwise stable. CBC/BMP: 04/02/17 0421 04/04/17 0730 Significant Findings Laboratory Tests Test 04/01/17 04/02/17 04/02/17 04/03/17 17:55 04:21 14:05 08:29 Percent Iron Saturation 18.6 % (20-50) Red Blood Count 3.88 MIL/MM3 (4.00-5.30) Red Cell Distribution Width 11.3 % (11.6-17.2) Blood Urea Nitrogen 4 MG/DL (7-18) 4 MG/DL (7-18) Aspartate Amino Transf 136 U/L (15-37) 149 U/L (15-37) (AST/SGOT) Alanine Aminotransferase 194 U/L (10-53) 195 U/L (10-53) (ALT/SGPT) Albumin 3.3 GM/DL (3.4-5.0) Urine Opiates Screen POS (NEG) Urine Cannabinoids Screen POS (NEG) Test 04/04/17 07:30 Potassium Level 3.3 MEQ/L (3.5-5.1) Blood Urea Nitrogen 3 MG/DL (7-18) Direct Bilirubin 0.3 MG/DL (0.0-0.2) Aspartate Amino Transf 133 U/L (15-37) (AST/SGOT) Alanine Aminotransferase 181 U/L (10-53) (ALT/SGPT) PE at Discharge GENERAL: NAD, A&Ox3 SKIN: Warm and dry. HEAD: Normocephalic. EYES: No scleral icterus. No injection or drainage. NECK: Supple, trachea midline. No JVD or lymphadenopathy. CARDIOVASCULAR: Regular rate and rhythm without murmurs, gallops, or rubs. RESPIRATORY: Breath sounds equal bilaterally. No accessory muscle use. GASTROINTESTINAL: Abdomen soft, non-tender, nondistended. MUSCULOSKELETAL: No cyanosis, or edema. Hospital Course Mrs. Bell is a 36 year old female. She was admitted with acute diverticulitis and irretractable Inocente pain. On treatment and her pain has improved. Other findings have included elevated LFTs. Though this is improving elevation remains. She has exposure to hepatitis C and may be hepatitis C positive. This close to her infection and would be uncertain if he elevated LFTs are a reaction to infection versus an underlying etiology. Her mother has a fatty liver. Today she is off her pain treatments and feeling at baseline and tolerating a regular diet. She is medically stable for discharge with continuation of treatment via oral antibiotics. I have given her laboratory testing to follow with her PCP. S will include CMP, hepatitis C viral load and antibody. Pt Condition on Discharge: Stable Discharge Disposition: Discharge Home Discharge Time: <= 30 minutes Discharge Instructions DIET: Follow Instructions for: As Tolerated, No Restrictions Activities you can perform: Regular-No Restrictions Follow up Referrals: PCP Follow-up - 4 Weeks New Orders: COMP MET PROF (CMP) HEP C ANTIBODY HEP C RNA GENOTYPE New Medications: Ciprofloxacin (Cipro) 500 Mg Tab 500 MG PO BID Infection #8 Ref 0 TAB Lactobacillus Acidophilus (Lactobacillus Acidophilus) 1 Tab Tab 1 TAB PO TIDAC Nutritional Supplement #30 Ref 0 TAB Metronidazole (Flagyl) 500 Mg Tab 500 MG PO TID Infection #12 Ref 0 TAB Continued Medications: Bupropion HCl ER 12 HR (Wellbutrin SR 12 HR) 150 Mg Tab 150 MG PO DAILY Control Depression Ref 0 TAB Buspirone (Buspirone) 7.5 Mg Tab 10 MG PO BID Anxiety Ref 0 TAB Ondansetron Odt (Zofran Odt) 4 Mg Tab 4 MG SL Q6HR PRN Nausea/Vomiting #30 Ref 0 TAB Beka Saul MD April 04, 2017 1:35 pm
[2017-04-06 11:51] LABS: IGA SERUM 231 mg/dL (81-463); TISSUE TRANSGLUTAMINASE AB IGG ND U/mL (())
[2017-04-06 15:53] LABS: ENDOMYSIAL AB TITER ND (<1:5); TISSUE TRANSGLUTAMINASE AB LESS THAN 1 U/mL (())
== END 2017-04-04 11:42 | disposition home or self-care (01) ==
LOC: PHED 08:43 → PHEDA 11:33 → PH3B 12:53
PROVIDERS: ADMIT Hospitalist; ATTEND Hospitalist
DX: K52.9 Noninfective gastroenteritis and colitis, unspecified (principal); K57.92 Diverticulitis of intestine, part unspecified, without perforation or abscess without bleeding; N20.0 Calculus of kidney; K21.9 Gastro-esophageal reflux disease without esophagitis; F41.9 Anxiety disorder, unspecified; F32.9 Major depressive disorder, single episode, unspecified; F17.200 Nicotine dependence, unspecified, uncomplicated; F90.9 Attention-deficit hyperactivity disorder, unspecified type; R79.89 Other specified abnormal findings of blood chemistry; R74.0 Nonspecific elevation of levels of transaminase and lactic acid dehydrogenase [LDH]; R50.9 Fever, unspecified; Z79.899 Other long term (current) drug therapy
CPT/HCPCS: 74176; 78226; 80048; 80053; 80074; 80307; 81001; 82103; 82248; 82390; 82728; 82784; 83516; 83540; 83550; 84703; 85025; 86038; 87040; 87328; 87329; 96361; 96365; 96375; 96376; 99285; A9537; G0378; J0744; J1170; J1650; J2270; J2405; J2765; J7030